=== PATIENT | female | born 1945 | race Two or more races ===

== ENCOUNTER 2018-10-01 12:11 | Emergency (ER) | payer OTHER ==
[~2018-10-01] VITALS: Ht 162.6 cm; Wt 65.3 kg
[2018-10-01] MEDS ORDERED: TOPROL XL25 M1 (13:41)
[2018-10-01] MEDS ORDERED: [UNRECOGNIZED DRUG - OTHER] (13:42)
[2018-10-01] MEDS ORDERED: D3 DOTS2000 UNIT (13:43)
== END 2018-10-01 14:58 | disposition home or self-care (01) ==
LOC: ER 12:11
DX: S00.83XA Contusion of other part of head, initial encounter (principal); W18.39XA Other fall on same level, initial encounter; Y93.89 Activity, other specified; Y92.89 Other specified places as the place of occurrence of the external cause; Y99.8 Other external cause status

== ENCOUNTER 2019-02-11 09:57 | Emergency (ER) | payer OTHER ==
[~2019-02-11] VITALS: Ht 154.9 cm; Wt 64.0 kg
[~2019-02-11 09:57] MED LIST: D3 DOTS2000 UNIT; TOPROL XL25 M1; [UNRECOGNIZED DRUG - OTHER]
[2019-02-11] MEDS ORDERED: LEVOTHYROXINE25 MCG (10:14)
== END 2019-02-11 13:16 | disposition home or self-care (01) ==
LOC: ER 09:57
DX: S92.332A Displaced fracture of third metatarsal bone, left foot, initial encounter for closed fracture (principal); S92.352A Displaced fracture of fifth metatarsal bone, left foot, initial encounter for closed fracture; W18.39XA Other fall on same level, initial encounter; Y93.89 Activity, other specified; Y92.098 Other place in other non-institutional residence as the place of occurrence of the external cause; Y99.8 Other external cause status

== ENCOUNTER 2019-02-17 11:13 | Outpatient (CLI) | payer OTHER ==
[~2019-02-17 11:13] MED LIST changes: +LEVOTHYROXINE25 MCG
== END 2019-02-17 11:37 | disposition home or self-care (01) ==
LOC: RAD 501 11:13
DX: M54.5 Low back pain (principal); M79.672 Pain in left foot

== ENCOUNTER 2019-02-25 09:38 | Outpatient (CLI) | payer OTHER | END 2019-02-25 15:00 | disposition home or self-care (01) | LOC: LAB 09:38 | DX: E55.9 Vitamin D deficiency, unspecified (principal); M85.9 Disorder of bone density and structure, unspecified; E88.89 Other specified metabolic disorders; M81.8 Other osteoporosis without current pathological fracture; E56.1 Deficiency of vitamin K ==

== ENCOUNTER 2019-03-03 13:12 | Outpatient (CLI) | payer OTHER | END 2019-03-03 15:28 | disposition home or self-care (01) | LOC: RAD 13:12 | DX: S92.352A Displaced fracture of fifth metatarsal bone, left foot, initial encounter for closed fracture (principal); S60.222A Contusion of left hand, initial encounter ==